=== PATIENT | female | born 1985 | race Caucasian/White ===

== ENCOUNTER 2016-08-09 18:03 | Emergency (ER) | payer BC ==
[2016-08-09 18:24] VITALS: BP 126/75
--- NOTE | 2016-08-09 18:46 | EDM.PDOC ---
ED HPI - General Chief Complaint: [employer] Problem Stated Complaint: MEDICAL Time Seen by Provider: 08/09/16 18:16 Source: Reports: Patient, Family, RN notes reviewed History Limitations: Reports: No limitations - History of Present Illness INITIAL COMMENTS - FREE TEXT/NARRATIVE: 31-year-old female 4 para 2 presents emergency department today complaint of vaginal bleeding she has 2 healthy children home she has a history of 1 miscarriage estimate 10-12 weeks she is estimated about 17 weeks at this time due date is January 15 by ultrasound at 8 weeks she states she has no abdominal pain denies any fevers or other symptoms started having a big blood today while she was running errands has went through a couple pads per hour but does not feel lightheaded at this time, has never received RhoGAM believes her blood type is positive - Related Data Allergies/ADRs: Allergies Allergy/AdvReac Type Severity Reaction Status Date / Time No Known Allergies Allergy Verified 08/09/16 18:05 Home Meds: Home Meds Ergocalciferol (Vitamin D2) [Vitamin D] 1,000 unit PO DAILY 08/09/16 [History] Pnv with Ca,No.74/Iron/Fa [ Low Iron Tablet] 1 tab PO DAILY 08/09/16 [ History] Past Medical History [employer]ESPERSON [employer] History: Reports: , Spontaneous Musculoskeletal History: Reports: Other (see below) Other Musculoskeletal History: back pain Social & Family History - Tobacco Use Smoking Status *Q: Never Smoker - Caffeine Use Caffeine Use: Reports: Soda - Recreational Drug Use Recreational Drug Use: No ED ROS GENERAL - Review of Systems Review Of Systems: See Below Constitutional: Reports: no symptoms HEENT: Reports: No symptoms Respiratory: Reports: No Symptoms Cardiovascular: Reports: No symptoms GI/Abdominal: Reports: No symptoms : Reports: irregular menses Musculoskeletal: Reports: no symptoms Skin: Reports: no symptoms Neurological: Reports: No Symptoms ED EXAM - Physical Exam Exam: See Below Exam Limited By: No limitations General Appearance: alert, WD/WN, no apparent distress Respiratory/Chest: no respiratory distress, lungs clear, normal breath sounds, no accessory muscle use Cardiovascular: regular rate, rhythm, no murmur GI/Abdominal: soft, non tender, gravid uterus Fundal Height in cm: 19 (Female) Exam: Normal bimanual exam, Normal external exam, Enlarged uterus, Vaginal bleeding, Other (Done in the presence of nursing staff). No: Products of conception, tissue present in cervix/vagina, Uterine tenderness heart tones: present heart tones per min: 140 movement: active Course - Vital Signs Last Recorded V/S: Last Vital Signs Temp 99.0 F 08/09/16 18:05 Pulse 75 08/09/16 18:05 Resp 18 08/09/16 18:05 BP 126/75 08/09/16 18:05 Pulse Ox 98 08/09/16 18:05 - Orders/Labs/Meds Orders: Active Orders 24 hr Category Date Time Status OB Ltd 1 or More Fetus [US] Stat Exams 08/09/16 18:30 Taken Labs: Laboratory Tests 08/09/16 08/09/16 Range/Units 18:46 18:46 WBC 10.8 (4.5-11.0) K/uL RBC 4.10 (3.30-5.50) M/uL Hgb 12.3 (12.0-15.0) g/dL Hct 36.2 (36.0-48.0) % MCV 88 (80-98) fL MCH 30 (27-31) pg MCHC 34 (32-36) % Plt Count 276 (150-400) K/uL Neut % (Auto) 76 H (36-66) % Lymph % (Auto) 18 L (24-44) % [place] % (Auto) 6 (2-6) % Eos % (Auto) 1 L (2-4) % Baso % (Auto) 0 (0-1) % HCG, Quant 54148 H (0-6) mIU/mL Departure - Departure Time of Disposition: 21:30 Disposition: Home, Self-Care 01 Condition: fair Clinical Impression: Vagina bleeding Forms: ED Department Discharge Additional Instructions: Please followup with her [employer] tomorrow, call or return to the emergency department with worsening of symptoms - My Orders Last 24 Hours: My Active Orders 08/09/16 18:30 OB Ltd 1 or More Fetus [US] Stat - Assessment/Plan Last 24 Hours: My Active Orders 08/09/16 18:30 OB Ltd 1 or More Fetus [US] Stat Plan: Assessment Acuity = acute Site and laterality = vaginal bleeding and a female that is 17 weeks 4 days intrauterine 4 para 2 Etiology = unclear etiology Manifestations = none Location of injury = home Lab values = hemoglobin normal 12.3 hCG 20,244 ultrasound shows single living uterus no placental abruption however there to hypoechoic areas near the cervix of unclear etiology recommending followup ultrasound this week Plan I did review lab work and ultrasound results with her she is to contact her OB/ [employer] tomorrow for further evaluation Patient was in agreement with the plan all questions were answered, they were instructed to return to the emergency department or call for worsening symptoms. This note was dictated using [employer] voice recognition software please call with any questions.
== END 2016-08-09 21:42 | disposition home or self-care (01) ==
LOC: JP.ED 18:03
DX: O46.92 Antepartum hemorrhage, unspecified, second trimester (principal); Z3A.17 17 weeks gestation of pregnancy; Z79.899 Other long term (current) drug therapy
CPT/HCPCS: 36415; 76815; 84702; 85025; 99284-25